=== PATIENT | male | born 1940 | race Caucasian/White ===

== ENCOUNTER 2017-04-21 07:26 | Emergency (ER) | payer MEDICARE, OTHER ==
[2017-04-21 07:33] VITALS: RESP 16; TEMP 98.3
[2017-04-21 08:08] LABS: BASOPHILS % (AUTO) 1 % (0-3); EOSINOPHILS % (AUTO) 0 % (0-9); HEMATOCRIT 42 % (39-53); MEAN CORPUSCULAR VOLUME 88 fL (80-100); NEUTROPHILS % (AUTO) 73.4 % (37-80)
[2017-04-21 08:25] LABS: ALBUMIN 3.7 gm/dl (3.4-5.0); POTASSIUM 3.9 mMol/L (3.5-5.1)
[2017-04-21 08:54] VITALS: PULSE 91
[2017-04-21 10:00] VITALS: BP 135/84; O2SAT 94
== END 2017-04-21 10:00 | DRG 379 ==
LOC: ED 07:26
DX: K92.0 Hematemesis (principal); F03.90 Unspecified dementia, unspecified severity, without behavioral disturbance, psychotic disturbance, mood disturbance, and anxiety
CPT/HCPCS: 36415; 80053; 82272; 85025; 85610; 85730; 87804; 99283; 99284